=== PATIENT | female | born 1955 | race American Indian/Alaskan Native ===

== ENCOUNTER 2017-08-01 14:06 | Emergency (ER) | payer OTHER ==
[~2017-08-01] VITALS: Ht 154.9 cm; Wt 52.2 kg
[2017-08-01 14:55] LABS: CLARITY,URINE SL CLOUDY (CLEAR); COLOR,URINE YELLOW (YELLOW)
[2017-08-01 14:56] LABS: BILIRUBIN,URINE NEGATIVE (NEGATIVE); KETONES,URINE NEGATIVE (NEGATIVE); LEUKOCYTE ESTERASE ,URINE 1+ (NEGATIVE); NITRITE,URINE NEGATIVE (NEGATIVE); PROTEIN,URINE DIPSTICK NEGATIVE (NEGATIVE); URINE UROBILINOGEN 0.2 mg/dL (0.2 - 1)
[2017-08-01 15:01] LABS: BACTERIA,URINE FEW /HPF; EPITHELIAL CELLS,URINE FEW /LPF; WBC,URINE (MAN) >50 /HPF (0-5)
[2017-08-01] MEDS ORDERED: CEFTRIAXONE SOD 1 GM VIAL IM ONE (15:15)
[2017-08-01 15:54] VITALS: BP 128/83
== END 2017-08-01 16:08 | disposition home or self-care (01) ==
LOC: ER 14:14
DX: R10.2 Pelvic and perineal pain (principal); N30.01 Acute cystitis with hematuria; N95.2 Postmenopausal atrophic vaginitis
CPT/HCPCS: 81001; 87086; 87186; 99284; J0696